=== PATIENT | female | born 1995 | race Two or more races ===

== ENCOUNTER 2017-09-24 04:03 | Emergency (ER) | payer OTHER ==
[~2017-09-24] VITALS: Ht 165.1 cm; Wt 68.0 kg
[2017-09-24 04:55] LABS: Alcohol, Urine < 3.0 mg/dL (0-5); Amphetamine Screen, Urine NEGATIVE (NEGATIVE); Barbiturate Scree,Urine NEGATIVE (NEGATIVE); Benzodiazephine Screen, Urine NEGATIVE (NEGATIVE); Cannabinoid Screen, Urine NEGATIVE (NEGATIVE); Cocaine Screen, Urine NEGATIVE (NEGATIVE); Opiate Scree,Urine NEGATIVE (NEGATIVE); Phencyclidine Screen, Urine NEGATIVE (NEGATIVE)
[2017-09-24 08:29] VITALS: BP 145/75
== END 2017-09-24 08:33 | disposition home or self-care (01) ==
LOC: ER 04:06
DX: S80.02XA Contusion of left knee, initial encounter (principal); W10.8XXA Fall (on) (from) other stairs and steps, initial encounter; Y93.89 Activity, other specified; Y92.89 Other specified places as the place of occurrence of the external cause; Y99.8 Other external cause status
CPT/HCPCS: 29505; 73562; 80307